=== PATIENT | male | born 1985 | race Caucasian/White ===

== ENCOUNTER 2023-04-29 04:40 | Emergency (ER) | payer OTHER ==
[2023-04-29 05:29] VITALS: RESP 16; TEMP 97
[2023-04-29] MEDS ORDERED: levETIRAcetam IV 500 MG/5 ML VIAL IVP STA (05:29)
--- NOTE | 2023-04-29 05:32 | ED ---
General Adult HPI - General Chief complaint: Seizure Stated complaint: Seizure Time Seen by Provider: 04/29/23 04:57 Source: patient Mode of arrival: EMS Limitations: no limitations - History of Present Illness Initial comments: Dictation was produced using 4meee dictation software. please excuse any grammatical, word or spelling errors. Chief Complaint: 37-year-old male with history of seizure disorder presents to emergency department after having had a seizure History of Present Illness: 37-year-old male with past medical history of seizure disorder presents to emergency department after seizure. Patient has history of alcoholism. Patient currently a resident at [facility]. He's had alcohol withdrawal seizures in the past. Hasn't had a alcoholic drink in approximately 3-4 days. Patient takes Keppra. He reports full complaints with his medications. Patient's alcohol withdrawals have been treated at [facility]. Patient's last seizure was in January. States that around that time he has been abusing alcohol. Denies any neurologic deficits. The ROS documented in this emergency department record has been reviewed and confirmed by me. Those systems with pertinent positive or negative responses have been documented in the HPI. All other systems are other negative and/or noncontributory. Review of Systems ROS Statement: Those systems with pertinent positive or pertinent negative responses have been documented in the HPI. ROS Other: All systems not noted in ROS Statement are negative. Past Medical History Past Medical History: Seizure Disorder History of Any Multi-Drug Resistant Organisms: None Reported Past Surgical History: No Surgical Hx Reported Past Psychological History: No Psychological Hx Reported Smoking Status: Smoker, current status unknown Past Alcohol Use History: Abuse Past Drug Use History: None Reported General Exam - General Exam Comments Initial Comments: PHYSICAL EXAM: General Impression: Alert and oriented x3, not in acute distress HEENT: Normocephalic atraumatic, extra-ocular movements intact, pupils equal and reactive to light bilaterally, mucous membranes moist. Cardiovascular: Heart regular rate and rhythm Chest: Able to complete full sentences, no retractions, no tachypnea Abdomen: abdomen soft, non-tender, non-distended, no organomegaly Musculoskeletal: Pulses present and equal in all extremities, no peripheral edema Motor: no focal deficits noted Neurological: CN II-XII grossly intact, no focal motor or sensory deficits noted Skin: Intact with no visualized rashes Psych: Normal affect and mood Limitations: no limitations Course Vital Signs 04/29/23 04/29/23 04:50 06:05 Temperature 97.0 F L Pulse Rate 65 68 Respiratory 16 16 Rate Blood Pressure 128/100 146/114 O2 Sat by Pulse 97 95 Oximetry Medical Decision Making - Medical Decision Making Was pt. sent in by a medical professional or institution (, SONALI, FUEL DOCK ATTENDANT, urgent care, hospital, or senior living...) When possible be specific @ -[facility] Did you speak to anyone other than the patient for history (EMS, parent, family, police, friend...)? What history was obtained from this source @ -No Did you review nursing and triage notes (agree or disagree)? Why? @ -I reviewed and agree with nursing and triage notes Were old charts reviewed (outside hosp., previous admission, EMS record, old EKG, old radiological studies, urgent care reports/EKG's, senior living records)? Report findings @ -No old charts were reviewed Differential Diagnosis (chest pain, altered mental status, abdominal pain women, abdominal pain men, vaginal bleeding, musculoskeletal, weakness, fever, dyspnea, syncope, headache, dizziness, GI bleed, back pain, seizure, CVA, palpatations, mental health)? @ -Differential Seizure: Recurrent seizure disorder, febrile seizure, alcohol withdrawal, stimulants, m eningitis, encephalitis, intercranial hemorrhage, intracranial tumor, stroke, eclampsia, thyrotoxicosis, hypocalcemia, hyponatremia, hypernatremia, hypomagnesemia, psychogenic, this is not meant to be an all-inclusive list. EKG interpreted by me (3pts min.). @ -My EKG interpretation: Ventricular rate 54, sinus bradycardia, OR interval 145, QRS 86, QTC 437. No OR prolongation, no QTC prolongation. Isolated T-wave inversion in lead 3. No old EKG for comparison. Overall this EKG is nonspecific X-rays interpreted by me (1pt min.). @ -None done CT interpreted by me (1pt min.). @ -None done U/S interpreted by me (1pt. min.). @ -None done What testing was considered but not performed or refused? (CT, X-rays, U/S, labs)? Why? @ -None What meds were considered but not given or refused? Why? @ -None Did you discuss the management of the patient with other professionals (professionals i.e. , PA, FUEL DOCK ATTENDANT, lab, RT, psych nurse, social service director, demand planner, teacher, chief green officer, senior case manager)? Give summary @ -No Was smoking cessation discussed for >3mins.? @ -No Was critical care preformed (if so, how long)? @ -No Were there social determinants of health that impacted care today? How? (Homelessness, low income, unemployed, alcoholism, drug addiction, transportation, low edu. Level, literacy, decrease access to med. care, fdc, rehab)? @ -No Was there de-escalation of care discussed even if they declined (Discuss DNR or withdrawal of care, Hospice)? DNR status @ -No What co-morbidities impacted this encounter? (DM, HTN, Smoking, COPD, CAD, Cancer, CVA, ARF, Chemo, Hep., AIDS, mental health diagnosis, sleep apnea, morbid obesity)? @ -None Was patient admitted / discharged? Hospital course, mention meds given and route, prescriptions, significant lab abnormalities, going to OR and other pertinent info. @ -37 Year-old male with past medical history of seizure disorder presents to the ER after seizure. Patient currently at detox facility for alcohol detox. Does report having had a seizure disorder and also alcohol withdrawal seizures.Patient is not showing any signs of alcohol withdrawal. He is well- appearing with stable vitals not agitated or tremulous. Suspect that patient's seizure was secondary to breakthrough seizure. I return evaluation unremarkable. CBC metabolic panel unremarkable. Patient observed in emergency Department with no recurrence of seizures. Patient 1 g of Keppra. Patient discharged back to detox facility Undiagnosed new problem with uncertain prognosis? @ -No Drug Therapy requiring intensive monitoring for toxicity (Heparin, Nitro, Insulin, Cardizem)? @ -No Were any procedures done? @ -No Diagnosis/symptom? Acute, or Chronic, or Acute on Chronic? Uncomplicated (without systemic symptoms) or Complicated (systemic symptoms)? @ -Seizure Side effects of treatment? @ -No Exacerbation, Progression, or Severe Exacerbation? @ -No Poses a threat to life or bodily function? How? (Chest pain, USA, NM, pneumonia, PE, COPD, DKA, ARF, appy, cholecystitis, CVA, Diverticulitis, Homicidal, Suicidal, threat to staff... and all critical care pts) @ -yes - Lab Data Result diagrams: 04/29/23 05:11 04/29/23 05:11 Lab Results 04/29/23 04/29/23 Range/Units 05:11 05:11 WBC 5.9 (3.8-10.6) k/uL RBC 4.39 (4.30-5.90) m/uL Hgb 15.4 (13.0-17.5) gm/dL Hct 44.5 (39.0-53.0) % MCV 101.3 H (80.0-100.0) fL MCH 35.0 (25.0-35.0) pg MCHC 34.5 (31.0-37.0) g/dL RDW 12.4 (11.5-15.5) % Plt Count 84 L (150-450) k/uL MPV 10.0 Neutrophils % 77 % Lymphocytes % 14 % Monocytes % 6 % Eosinophils % 2 % Basophils % 0 % Neutrophils # 4.5 (1.3-7.7) k/uL Lymphocytes # 0.8 L (1.0-4.8) k/uL Monocytes # 0.4 (0-1.0) k/uL Eosinophils # 0.1 (0-0.7) k/uL Basophils # 0.0 (0-0.2) k/uL Sodium 134 L (137-145) mmol/L Potassium 4.0 (3.5-5.1) mmol/L Chloride 94 L (98-107) mmol/L Carbon Dioxide 30 (22-30) mmol/L Anion Gap 10 mmol/L BUN 12 (9-20) mg/dL Creatinine 0.77 (0.66-1.25) mg/dL Est GFR (CKD-EPI)AfAm >90 (>60 ml/min/1.73 sqM) Est GFR (CKD-EPI)NonAf >90 (>60 ml/min/1.73 sqM) Glucose 96 (74-99) mg/dL Calcium 9.8 (8.4-10.2) mg/dL Serum Alcohol <10 mg/dL Disposition Clinical Impression: Seizure Disposition: HOME SELF-CARE Condition: Good Instructions (If sedation given, give patient instructions): Recurrent Seizures in Adults (ED) Is patient prescribed a controlled substance at d/c from ED?: No Referrals: Nohemy Ramos MD [Primary Care Provider] - 1-2 days Time of Disposition: 06:42
[2023-04-29 05:52] LABS: Basophils % (A) 0 %; Eosinophils # (A) 0.1 k/uL (0-0.7); Eosinophils % (A) 2 %; HCT 44.5 % (39.0-53.0); HGB 15.4 gm/dL (13.0-17.5); Lymphocytes # (A) 0.8 k/uL (1.0-4.8); Lymphocytes % (A) 14 %; MCHC 34.5 g/dL (31.0-37.0); MCV 101.3 fL (80.0-100.0); Monocytes # (A) 0.4 k/uL (0-1.0); Monocytes % (A) 6 %; Neutrophils # (A) 4.5 k/uL (1.3-7.7); Neutrophils % (A) 77 %; Platelet Count 84 k/uL (150-450); RBC 4.39 m/uL (4.30-5.90); RDW 12.4 % (11.5-15.5); WBC 5.9 k/uL (3.8-10.6)
[2023-04-29 06:00] LABS: African American GFR (CKD) >90 (>60 ml/min/1.73 sqM); Alcohol <10 mg/dL; Anion Gap 10 mmol/L; Blood Urea Nitrogen 12 mg/dL (9-20); Calcium 9.8 mg/dL (8.4-10.2); Carbon Dioxide 30 mmol/L (22-30); Chloride 94 mmol/L (98-107); Glucose 96 mg/dL (74-99); Non-African American GFR(CKD) >90 (>60 ml/min/1.73 sqM); Sodium 134 mmol/L (137-145)
[2023-04-29 07:25] VITALS: BP 134/98; PULSE 58
== END 2023-04-29 07:17 | disposition home or self-care (01) ==
LOC: EC 04:40
DX: R56.9 Unspecified convulsions (principal); F17.200 Nicotine dependence, unspecified, uncomplicated
CPT/HCPCS: 36415; 93005; 80048; 85025; 99284; 96374; G0480; J1953; 80320

== ENCOUNTER 2023-04-30 13:04 | Inpatient (IN) | payer OTHER ==
[2023-04-30] MEDS ORDERED: KETOROLAC 15 MG/ML 1 ML VIAL IVP STA (13:32)
[2023-04-30] MEDS ORDERED: levETIRAcetam IV 500 MG/5 ML VIAL IVP ONE (13:32)
[2023-04-30] MEDS ORDERED: LORazepam 2 MG/ML INJ IV STA ×4 (13:32→17:55)
[2023-04-30] MEDS ORDERED: SODIUM CHLORIDE 0.9% 1,000 ML IV ONE (13:32)
[2023-04-30 14:01] LABS: Basophils % (A) 1 %; Eosinophils # (A) 0.2 k/uL (0-0.7); Eosinophils % (A) 4 %; HCT 40.1 % (39.0-53.0); Lymphocytes # (A) 0.7 k/uL (1.0-4.8); Lymphocytes % (A) 12 %; MCH 36.1 pg (25.0-35.0); MCHC 34.9 g/dL (31.0-37.0); MCV 103.5 fL (80.0-100.0); Macrocytosis Slight; Mean Platelet Volume 10.6; Monocytes # (A) 0.3 k/uL (0-1.0); Monocytes % (A) 6 %; Neutrophils # (A) 4.7 k/uL (1.3-7.7); Neutrophils % (A) 77 %; Platelet Count 102 k/uL (150-450); RBC 3.88 m/uL (4.30-5.90); RDW 12.2 % (11.5-15.5)
[2023-04-30 14:13] LABS: Cocaine Screen,Urine Not Detected (NotDetected); Phencyclidine Screen,Urine Not Detected (NotDetected); Urn Cannabinoid Scrn Detected (NotDetected)
[2023-04-30 14:14] LABS: Amphetamine Screen,Urine Not Detected (NotDetected); Barbiturate Screen,Urine Not Detected (NotDetected); Benzodiazepines Screen,Urine Detected (NotDetected); Methadone Screen, Urine Not Detected (NotDetected); Opiate Screen,Urine Not Detected (NotDetected); Oxycodone Screen, Urine Not Detected (NotDetected); Tricyclic Antidepressant,Urine Not Detected (NotDetected)
[2023-04-30 14:20] LABS: ALT 186 U/L (4-49); AST 467 U/L (17-59); Acetaminophen <10.0 ug/mL; African American GFR (CKD) >90 (>60 ml/min/1.73 sqM); Albumin 4.4 g/dL (3.5-5.0); Alcohol <10 mg/dL; Alkaline Phosphatase 59 U/L (38-126); Anion Gap 11 mmol/L; Blood Urea Nitrogen 17 mg/dL (9-20); Calcium 9.2 mg/dL (8.4-10.2); Carbon Dioxide 22 mmol/L (22-30); Chloride 100 mmol/L (98-107); Glucose 85 mg/dL (74-99); Non-African American GFR(CKD) >90 (>60 ml/min/1.73 sqM); Salicylate <1.0 mg/dL; Sodium 133 mmol/L (137-145); Total Bilirubin 1.7 mg/dL (0.2-1.3); Total Protein 7.4 g/dL (6.3-8.2)
[2023-04-30 14:26] LABS: Potassium 4.5 mmol/L (3.5-5.1)
--- NOTE | 2023-04-30 15:01 | ED ---
Altered Mental Status HPI <Alexei Anaya - Last Filed: 04/30/23 22:15> - General Source: police, EMS, RN notes reviewed Mode of arrival: EMS Limitations: altered mental status - History of Present Illness MD Complaint: altered mental status <Migdalia De La Cruz - Last Filed: 05/01/23 07:59> - General Chief Complaint: Altered Mental Status Stated Complaint: AMS,Detox Time Seen by Provider: 04/30/23 13:20 - History of Present Illness Initial Comments: This is a 37-year-old male who presents to the emergency department via EMS with police for altered mental status. Patient was initially at [facility] and asked to leave, as he was supposedly causing a disturbance. When he left, he was found to be in the parking lot trying to get into various vehicles. When police arrived, he was altered. He was unsure where he was and listed several cities that were not [place]. He also stated that he had surgery on his right foot today, however police did not see any evidence of an incision. Patient states that they made a small incision in his leg that went down to fix his broken foot. States that this is still very painful. Patient was evaluated here yesterday for a breakthrough seizure. He came from [place], where he had been for alcohol detox. Patient was not exhibiting any evidence of alcohol withdrawals it was believed that this was simply a breakthrough seizure. He was given a dose of Keppra and discharged back to [place]. However, the patient subsequently left [place] on his own accord today and will not be accepted back per police. Police did petition the patient. (Migdalia De La Cruz) - Related Data Home Medications Medication Instructions Recorded Confirmed levETIRAcetam [Keppra] 750 mg PO BID 04/30/23 04/30/23 Allergies Allergy/AdvReac Type Severity Reaction Status Date / Time No Known Allergies Allergy Verified 04/30/23 14:47 Review of Systems ROS Other: All systems not noted in ROS Statement are negative. <Alexei Anaya - Last Filed: 04/30/23 22:15> ROS Other: All systems not noted in ROS Statement are negative. <Migdalia De La Cruz - Last Filed: 05/01/23 07:59> ROS Statement: Those systems with pertinent positive or pertinent negative responses have been documented in the HPI. Past Medical History - Past Family History Father Family Medical History: Unable to Obtain (due to mental status) <Alexei Anaya - Last Filed: 04/30/23 22:15> Past Medical History: Seizure Disorder History of Any Multi-Drug Resistant Organisms: None Reported Past Surgical History: No Surgical Hx Reported Past Psychological History: No Psychological Hx Reported Smoking Status: Smoker, current status unknown Past Alcohol Use History: Abuse Past Drug Use History: None Reported <Migdalia De La Cruz - Last Filed: 05/01/23 07:59> General Exam Limitations: altered mental status General appearance: alert Head exam: Present: atraumatic, normocephalic, normal inspection Respiratory exam: Present: normal lung sounds bilaterally. Absent: respiratory distress, wheezes, rales, rhonchi, stridor Cardiovascular Exam: Present: regular rate, normal rhythm, normal heart sounds. Absent: systolic murmur, diastolic murmur, rubs, gallop, clicks Psychiatric exam: Present: agitated Expanded Focused psych exam: Present: delusional, restlessness, flight of ideas <Migdalia De La Cruz - Last Filed: 05/01/23 07:59> Course Vital Signs 04/30/23 04/30/23 04/30/23 13:13 16:49 18:12 Temperature 98.1 F Pulse Rate 83 87 97 Respiratory 18 20 22 Rate Blood Pressure 153/107 167/122 157/115 O2 Sat by Pulse 99 98 97 Oximetry Procedures - Restraint - Face to Face Restraint Occurrence 1 Patient's Immediate Situation: Endangers self safety Patient's Reaction to the Intervention: Belligerent, Bizarre, Suspicious, Resistive to care Patient's Medical & Behavioral Condition: Agitated, Paranoid Need to Continue or Terminate Restraint or Seclusion: Continue Face to Face Eval of Restraint Date: 04/30/23 Face to Face Eval of Restraint Time: 17:36 Restraint Occurrence 2 Patient's Immediate Situation: Endangers self safety, Endangers others' safety Patient's Reaction to the Intervention: Bizarre, Suspicious, Resistive to care Patient's Medical & Behavioral Condition: Confused, Agitated, Bizarre behavior Need to Continue or Terminate Restraint or Seclusion: Continue Face to Face Eval of Restraint Date: 04/30/23 Face to Face Eval of Restraint Time: 21:36 <ElenaAlexei dietrich - Last Filed: 04/30/23 22:15> Medical Decision Making - Lab Data Result diagrams: 04/30/23 13:48 04/30/23 13:48 <ElenakaurAlexei - Last Filed: 04/30/23 22:15> - Lab Data Result diagrams: 05/01/23 05:18 05/01/23 05:18 - Radiology Data Radiology results: report reviewed, image reviewed <Migdalia De La Cruz - Last Filed: 05/01/23 07:59> - Medical Decision Making This is a 37-year-old male who presents to the emergency department for altered mental status. Was pt. sent in by a medical professional or institution? @ -No Did you speak to anyone other than the patient for history? @ -[facility] Did you review nursing and triage notes? @ -Yes, and I agree, it is accurate with regards to the patient's symptoms. Were old charts reviewed? @ -No Differential Diagnosis? @ -Differential Altered Mental Status: Hypoglycemia, DKA, hypercapnia, ETOH, overdose, CO poisoning, trauma, myxedema coma, HTN encephalopathy, infection, encephalitis, psychosis, intercranial hem orrhage, hepatic encephalopathy, meningitis, CVA, this is not meant to be an all-inclusive list EKG interpreted by me (3pts min.)? @ -Not obtained. X-rays interpreted by me (1pt min.)? @ -X-ray of the right foot and ankle obtained. My interpretation identifies soft tissue swelling. CT interpreted by me (1pt min.)? @ -Computed tomography scan of the brain obtained. My interpretation identifies no evidence of ischemic changes. U/S interpreted by me (1pt. min.)? @ -Not obtained What testing was considered but not performed? (CT, X-rays, U/S, labs)? Why? @ -None What meds were considered but not given? Why? @ -None Did you discuss the management of the patient with other professionals? @ -No Did you reconcile home meds? @ -No Was smoking cessation discussed for >3mins.? @ -No Was critical care preformed (if so, how long)? @ -No Were there social determinants of health that impacted care today? How? (Homelessness, low income, unemployed, alcoholism, drug addiction, transportation, low edu. Level, literacy, decrease access to med. care, care home, rehab)? @ -No Was there de-escalation of care discussed even if they declined? (Discuss DNR or withdrawal of care, Hospice)? @ -No What co-morbidities impacted this encounter? (DM, HTN, Smoking, COPD, CAD, Cancer, CVA, Hep., AIDS, mental health diagnosis, sleep apnea, morbid obesity)? @ -Seizure disorder, alcohol abuse Was patient admitted / discharged? @ -Lab work obtained revealing elevated liver enzymes consistent with the patient's history of alcohol abuse. Urine drug screen positive for marijuana and benzodiazepines. Alcohol level negative. Computed tomography scan of the brain obtained revealing a left globe abnormality concerning for vitreous hemorrhage. Patient was very agitated and delusional on examination. He would not answer questions regarding his eye, nor would he let me examine it. He did not have any obvious injuries on exam. He was given 750 mg of Keppra, as he did not take his dose today. 2 mg, followed by 1 mg of Ativan were given initially, however the patient became progressively more agitated and psychotic. He was subsequently given 4 mg of Ativan, followed by 50 mg of Benadryl and 2 mg of Haldol. 2mg of Ativan administered again. Patient continued to have no improvement and had to be put in restraints. 5 mg of Haldol and 2 mg of Ativan were then administered. Case signed out to ED attending, Dr. Anaya, at shift completion. EPS eval pending. Undiagnosed new problem with uncertain prognosis? @ -None Drug Therapy requiring intensive monitoring for toxicity (Heparin, Nitro, Insulin, Cardizem)? @ -None Were any procedures done? @ -None (Migdalia De La Cruz) - Lab Data Lab Results 04/30/23 04/30/23 04/30/23 Range/Units 13:48 13:48 13:48 WBC 6.0 (3.8-10.6) k/uL RBC 3.88 L (4.30-5.90) m/uL Hgb 14.0 (13.0-17.5) gm/dL Hct 40.1 (39.0-53.0) % MCV 103.5 H (80.0-100.0) fL MCH 36.1 H (25.0-35.0) pg MCHC 34.9 (31.0-37.0) g/dL RDW 12.2 (11.5-15.5) % Plt Count 102 L (150-450) k/uL MPV 10.6 Neutrophils % 77 % Lymphocytes % 12 % Monocytes % 6 % Eosinophils % 4 % Basophils % 1 % Neutrophils # 4.7 (1.3-7.7) k/uL Lymphocytes # 0.7 L (1.0-4.8) k/uL Monocytes # 0.3 (0-1.0) k/uL Eosinophils # 0.2 (0-0.7) k/uL Basophils # 0.0 (0-0.2) k/uL Macrocytosis Slight Sodium 133 L (137-145) mmol/L Potassium 4.5 (3.5-5.1) mmol/L Chloride 100 (98-107) mmol/L Carbon Dioxide 22 (22-30) mmol/L Anion Gap 11 mmol/L BUN 17 (9-20) mg/dL Creatinine 0.85 (0.66-1.25) mg/dL Est GFR (CKD-EPI)AfAm >90 (>60 ml/min/1.73 sqM) Est GFR (CKD-EPI)NonAf >90 (>60 ml/min/1.73 sqM) Glucose 85 (74-99) mg/dL Plasma Lactic Acid Sina (0.7-2.0) mmol/L Calcium 9.2 (8.4-10.2) mg/dL Total Bilirubin 1.7 H (0.2-1.3) mg/dL AST 467 H (17-59) U/L ALT 186 H (4-49) U/L Alkaline Phosphatase 59 (38-126) U/L Total Protein 7.4 (6.3-8.2) g/dL Albumin 4.4 (3.5-5.0) g/dL Salicylates <1.0 mg/dL Urine Opiates Screen Not Detected (NotDetected) Ur Oxycodone Screen Not Detected (NotDetected) Urine Methadone Screen Not Detected (NotDetected) Ur Propoxyphene Screen Not Detected (NotDetected) Acetaminophen <10.0 ug/mL Ur Barbiturates Screen Not Detected (NotDetected) U Tricyclic Antidepress Not Detected (NotDetected) Ur Phencyclidine Scrn Not Detected (NotDetected) Ur Amphetamines Screen Not Detected (NotDetected) U Methamphetamines Scrn Not Detected (NotDetected) U Benzodiazepines Scrn Detected H (NotDetected) Urine Cocaine Screen Not Detected (NotDetected) U Marijuana (THC) Screen Detected H (NotDetected) Serum Alcohol <10 mg/dL 04/30/23 Range/Units 13:48 WBC (3.8-10.6) k/uL RBC (4.30-5.90) m/uL Hgb (13.0-17.5) gm/dL Hct (39.0-53.0) % MCV (80.0-100.0) fL MCH (25.0-35.0) pg MCHC (31.0-37.0) g/dL RDW (11.5-15.5) % Plt Count (150-450) k/uL MPV Neutrophils % % Lymphocytes % % Monocytes % % Eosinophils % % Basophils % % Neutrophils # (1.3-7.7) k/uL Lymphocytes # (1.0-4.8) k/uL Monocytes # (0-1.0) k/uL Eosinophils # (0-0.7) k/uL Basophils # (0-0.2) k/uL Macrocytosis Sodium (137-145) mmol/L Potassium (3.5-5.1) mmol/L Chloride (98-107) mmol/L Carbon Dioxide (22-30) mmol/L Anion Gap mmol/L BUN (9-20) mg/dL Creatinine (0.66-1.25) mg/dL Est GFR (CKD-EPI)AfAm (>60 ml/min/1.73 sqM) Est GFR (CKD-EPI)NonAf (>60 ml/min/1.73 sqM) Glucose (74-99) mg/dL Plasma Lactic Acid Sina 1.0 (0.7-2.0) mmol/L Calcium (8.4-10.2) mg/dL Total Bilirubin (0.2-1.3) mg/dL AST (17-59) U/L ALT (4-49) U/L Alkaline Phosphatase (38-126) U/L Total Protein (6.3-8.2) g/dL Albumin (3.5-5.0) g/dL Salicylates mg/dL Urine Opiates Screen (NotDetected) Ur Oxycodone Screen (NotDetected) Urine Methadone Screen (NotDetected) Ur Propoxyphene Screen (NotDetected) Acetaminophen ug/mL Ur Barbiturates Screen (NotDetected) U Tricyclic Antidepress (NotDetected) Ur Phencyclidine Scrn (NotDetected) Ur Amphetamines Screen (NotDetected) U Methamphetamines Scrn (NotDetected) U Benzodiazepines Scrn (NotDetected) Urine Cocaine Screen (NotDetected) U Marijuana (THC) Screen (NotDetected) Serum Alcohol mg/dL Disposition <Alexei Anaya - Last Filed: 04/30/23 22:15> <Migdalia De La Cruz - Last Filed: 05/01/23 07:59> Clinical Impression: Alcohol withdrawal delirium Disposition: ADMITTED IP TO THIS HOSP
--- NOTE | 2023-04-30 15:22 | XR ---
EXAMINATION TYPE: XR ankle complete 3 views RT, XR foot complete 3 views RT DATE OF EXAM: 04/30/2023 COMPARISON: NONE HISTORY: 37-year-old male pain, swelling, contusion FINDINGS: Ankle: Prominent anterior soft tissue swelling. Slight prominence to the lateral clear space and distal tibi ofibular overlap. Talar dome appears intact. Small corticated ossicles below both medial and lateral malleoli measuring up to 5 mm medially and up to 1 cm laterally suggesting sequela of prior injuries. Underlying moderate joint effusion. Subtalar joint align. Foot: No acute fracture, subluxation, dislocation seen. IMPRESSION: 1. Ankle: Prominent anterior and lateral sided soft tissue swelling along with underlying tibiotalar joint effusion. Given a prominent lateral clear space, consider a high ankle sprain and orthopedic fo llow-up. Chronic ununited fracture fragments below both medial and lateral malleoli related to episod es of prior injuries. 2. Foot: No acute osseous abnormality seen.
[2023-04-30] MEDS ORDERED: LORazepam 2 MG/ML INJ IV PRN ×2 (15:24)
[2023-04-30] MEDS ORDERED: THIAMINE 100 MG/ML 2 ML VIAL IM STA (15:24)
--- NOTE | 2023-04-30 16:14 | CT ---
EXAMINATION TYPE: CT brain cspine wo con CT DLP: 1382.2 mGycm, Automated exposure control for dose reduction was used. DATE OF EXAM: 04/30/2023 4:03 PM COMPARISON: None. CLINICAL INDICATION:Male, 37 years old with history of Altered mental status; ams, substance abuse TECHNIQUE: Brain: Multiple axial CT images of the brain were obtained without IV contrast. Cspine: Axial CT images from the skull base to the inferior aspect of T2 we obtained without intraven ous contrast. Coronal and sagittal reformatted images were also reviewed. FINDINGS: Brain: Extra-axial spaces: No abnormal extra-axial fluid collections. Ventricular system: Within normal limits Cerebral parenchyma: No acute intraparenchymal hemorrhage or mass effect. The mcnamara-white junction is well differentiated. Cerebellum: Unremarkable. Mass effect: No evidence of midline shift. Intracranial vasculature: unremarkable Soft tissues: Normal. Calvarium/osseous structures: No depressed skull fracture. Paranasal sinuses and mastoid air cells: Mild scattered mucosal thickening and or secretions. Visualized orbits: Abnormality to the left globe suspicious with increased fluid fluid level posterio rly. The left lens is not visualized. Cervical spine: Fracture: None. Osseous structures: Unremarkable Vertebral alignment: Within normal limits. Spinal canal/Neural Foramina: No evidence of significant spinal canal narrowing. No evidence for sign ificant neural foraminal stenosis. Neck soft tissues: Prevertebral soft tissues are within normal limits. Other: The airway is patent. The lung apices are clear. IMPRESSION: 1. No acute intracranial process. 2. Left globe abnormality suspicious for vitreous hemorrhage versus other etiologies. Correlate with history. 3. No evidence of cervical spine fracture.
[2023-04-30] MEDS ORDERED: diphenhydrAMINE 50 MG/ML 1 ML VIAL IVP STA (16:54)
[2023-04-30] MEDS ORDERED: HALOPERIDOL LACTATE 5 MG/ML 1 ML VIAL IVP ONE ×2 (16:54→23:41)
[2023-04-30] MEDS ORDERED: HALOPERIDOL LACTATE 5 MG/ML 1 ML VIAL IM STA (17:42)
[2023-04-30] MEDS ORDERED: NALOXONE 0.4 MG/ML 1 ML VIAL IV PRN (20:10)
--- NOTE | 2023-04-30 20:33 | P.HPIM ---
History of Present Illness H&P Date: 04/30/23 The patient is a 37-year-old male with a PMH of EtOH abuse with history of DTs requiring ICU hospitalization and Ativan infusion, history of alcohol withdrawal seizures, and reported history of [id number] seizure disorder who was brought into the emergency room sent from [place] for DTs. The patient was actively withdrawing at the time of interview and thereby history was limited. History was upgraded from the ED provider as well as [facility] staff. The patient has reportedly been admitted to [facility] since 0 on 04/26 for alcohol rehabilitation and detox. The patient routinely drinks a fifth of hard liquor daily and has been doing so for the past several years. His last drink was just prior to admission at [facility]. The patient was noted to be developing DTs on the morning of 04/29 and had a seizure, after which he was sent to the emergency room. The patient was evaluated and was cleared for discharge and subsequently returned to [place]. As per the staff at [facility], the patient's agitation and withdrawal gradually worsened and he began having hallucinations and was subsequently sent back to the emergency room earlier today. There were no reports of trauma. In the emergency room, the patient was given Ativan IV push 11 mg, Benadryl 50 mg IV push, Haldol 5 mg IM and [address] head and cervical spine revealed no acute intracranial abnormalities aside from a global abnormality suspicious for vitreous hemorrhage versus other etiologies. A right ankle x-ray revealed lateral and anterior soft tissue swelling along the tibiotalar joint with a joint effusion, consistent with a high ankle sprain. Laboratory evaluation revealed an MCV of 103.5, platelet count 102, sodium 133, total bilirubin 0.7, lactic acid 1.0, AST 467, ALT 186, with urine toxicology positive for marijuana. ED documentation reviewed and case discussed with ED provider. [] Review of systems: Unable to obtain due to mental status. Physical examination: Vital signs reviewed General: Agitated male, appears at stated age, normal weight Derm: no unusual rashes/lesions, warm Head: atraumatic, normocephalic, symmetric Eyes: EOMI, no lid lag, anicteric sclera, pupils equal round reactive to light ENT: Nose and ears atraumatic Neck: No cervical lymphadenopathy, trachea midline, supple Mouth: no lip lesion, mucus membranes moist Cardiovascular: S1S2 reg, tachycardic, no murmur, positive dorsalis pedis pulse bilateral, no edema Lungs: CTA bilateral, no rhonchi, no rales, no accessory muscle use Abdominal: soft, nontender to palpation, no guarding Ext: no gross muscle atrophy, no contractures Neuro: no gross focal neuro deficits, patient in 4 point restraints, severely agitated Psych: Answering questions but only oriented to self Assessment: Alcohol withdrawal with delirium tremens Suspected vitreous hemorrhage Right high ankle sprain Macrocytosis Thrombocytopenia Abnormal LFTs Hyponatremia Imaging: CT head and cervical spine revealed no acute intracranial abnormalities aside from a global abnormality suspicious for vitreous hemorrhage versus other etiologies. A right ankle x-ray revealed lateral and anterior soft tissue swelling along the tibiotalar joint with a joint effusion, consistent with a high ankle sprain. Data Review: Laboratory evaluation revealed an MCV of 103.5, platelet count 102, sodium 133, total bilirubin 0.7, lactic acid 1.0, AST 467, ALT 186, with urine toxicology positive for marijuana. Plan: In light of patient requiring significant sedation with high CIWA score, patient will likely require ICU level of care with Ativan and Precedex infusions C/w IVFs NS 125 mL/hr Monitor electrolytes daily Fall precautions CIWA protocol with Ativan IVP C/w Thiamine The ED physician reports he discussed the case with ophthalmology telephone answerer who noted that vitreous hemorrhage is usually an outpatient follow-up but that they are happy to be on consult to evaluate the patient in a.m. [employer] consulted Orthopedic surgery consult for R ankle sprain DVT prophylaxis: IPCDs The patient is admitted with an anticipated greater than 2 midnight stay for evaluation of CODE STATUS: Full Code Discussed with: Patient Anticipated discharge place: [place] Past Medical History Past Medical History: Seizure Disorder History of Any Multi-Drug Resistant Organisms: None Reported Past Surgical History: No Surgical Hx Reported Past Psychological History: No Psychological Hx Reported Smoking Status: Smoker, current status unknown Past Alcohol Use History: Abuse Past Drug Use History: None Reported - Past Family History Father Family Medical History: Unable to Obtain (due to mental status) Medications and Allergies Home Medications Medication Instructions Recorded Confirmed Type levETIRAcetam [Keppra] 750 mg PO BID 04/30/23 04/30/23 History Allergies Allergy/AdvReac Type Severity Reaction Status Date / Time No Known Allergies Allergy Verified 04/30/23 14:47 Physical Exam Vitals: Vital Signs Temp Pulse Resp BP Pulse Ox 04/30/23 18:12 97 22 157/115 97 04/30/23 16:49 87 20 167/122 98 04/30/23 13:13 98.1 F 83 18 153/107 99 Intake and Output 04/30/23 04/30/23 04/30/23 06:59 14:59 22:59 Other: Weight 74.843 kg Results CBC & Chem 7: 04/30/23 13:48 04/30/23 13:48 Labs: Abnormal Lab Results - Last 24 Hours (Table) 04/30/23 04/30/23 04/30/23 Range/Units 13:48 13:48 13:48 RBC 3.88 L (4.30-5.90) m/uL MCV 103.5 H (80.0-100.0) fL MCH 36.1 H (25.0-35.0) pg Plt Count 102 L (150-450) k/uL Lymphocytes # 0.7 L (1.0-4.8) k/uL Sodium 133 L (137-145) mmol/L Total Bilirubin 1.7 H (0.2-1.3) mg/dL AST 467 H (17-59) U/L ALT 186 H (4-49) U/L U Benzodiazepines Scrn Detected H (NotDetected) U Marijuana (THC) Screen Detected H (NotDetected)
[2023-04-30 22:36] LABS: Glucose,Whole Blood 71 mg/dL (70-110)
[2023-04-30] MEDS ORDERED: HALOPERIDOL LACTATE 5 MG/ML 1 ML VIAL ONE (23:57)
[2023-05-01] MEDS: DEXMEDETOMIDINE/0.9% NACL(PMX) 400 MCG in EMPTY BAG 1 BAG IV SCH ×2 (01:00→06:32)
--- NOTE | 2023-05-01 05:57 | P.CNPUL ---
History of Present Illness Consult date: 05/01/23 Requesting physician: Alexei Anaya Reason for consult: other (ICU management) Chief complaint: Altered mental status History of present illness: I am seeing this patient in new consultation today 05/01/2023 in the intensive care unit for acute alcohol withdrawal. Patient is a 37-year-old white male with past medical history significant for alcoholism, alcohol withdrawal seizures, and prior admissions for DTs. Patient reportedly drinks 1/5 of alcohol per day. He is currently confused and delirious, and most of this HPI was obtained from chart review. The patient was apparently admitted at [place] [facility] facility to detox from alcohol. The patient did have a seizure while at the facility, and had an ER visit on April 29. The patient was then discharged back to [place]. Yesterday, afternoon the patient was brought in by the police, after being found in a parking lot causing some sort of disturbance. The patient was found to be agitated and having hallucinations/delusions. It is unknown when his last drink was. Serum EtOH level was less than 10 on arrival. He was started on the CIWA protocol, and admitted to the intensive care unit. The patient was also reporting some right foot pain. X-ray of the right ankle showed prominent anterior and lateral sided soft tissue swelling along with underlying tibiotalar joint effusion. This was consistent with high ankle sprain. There are also chronic ununited fracture fragments below both medial and lateral malleoli related to episodes of prior injury. No acute fracture seen. CT of the brain and C-spine without contrast showed no acute intracranial process or C-spine fracture. It did show a left globe abnormality suspicious for vitreous hemorrhage. The patient is currently sitting up in bed, on room air, quite agitated, exhibiting many delusions and hallucinations. He has been given multiple doses of Ativan and Haldol. He was then started on Precedex infusion which is currently infusing at 0.4 mics per kilogram per minute. Urine toxicology screen was positive for marijuana and benzodiazepines on arrival. CBC on arrival was unremarkable. BMP and electrolytes were unremarkable. Patient does have slightly elevated at LFTs consistent with chronic alcohol abuse. He is receiving vitamin B1 supple mentation. Normal saline is infusing at 100 mL per hour. Patient will be monitored in the intensive care unit. Review of Systems ROS unobtainable: due to mental status Past Medical History Past Medical History: Seizure Disorder History of Any Multi-Drug Resistant Organisms: None Reported Past Surgical History: No Surgical Hx Reported Past Psychological History: No Psychological Hx Reported Smoking Status: Smoker, current status unknown Past Alcohol Use History: Abuse Past Drug Use History: None Reported - Past Family History Father Family Medical History: Unable to Obtain (due to mental status) Medications and Allergies Home Medications Medication Instructions Recorded Confirmed Type levETIRAcetam [Keppra] 750 mg PO BID 04/30/23 04/30/23 History Allergies Allergy/AdvReac Type Severity Reaction Status Date / Time No Known Allergies Allergy Verified 04/30/23 14:47 Physical Exam Vitals: Vital Signs Temp Pulse Resp BP Pulse Ox 04/30/23 18:12 97 22 157/115 97 04/30/23 16:49 87 20 167/122 98 04/30/23 13:13 98.1 F 83 18 153/107 99 Intake and Output 04/30/23 04/30/23 05/01/23 14:59 22:59 06:59 Other: Weight 74.843 kg GENERAL EXAM: Anxious/agitated, 37-year-old white male , exhibiting delusions and hallucinations HEAD: Normocephalic and atraumatic EYES: Normal reaction of pupils, equal size. NOSE: Clear with pink turbinates. THROAT: No erythema or exudates. NECK: No masses, no JVD. CHEST: No chest wall deformity. LUNGS: Equal air entry with no crackles, wheeze, rhonchi or dullness. On room air. No conversational dyspnea or accessory muscle use.. CVS: S1 and S2 normal with no audible murmur, regular rhythm. No extra heart sounds. Is currently tachycardic ABDOMEN: No hepatosplenomegaly, active bowel sounds, no guarding or rigidity. SPINE: No scoliosis or deformity SKIN: No rashes CENTRAL NERVOUS SYSTEM: No focal deficits, tone is normal in all 4 extremities. EXTREMITIES: There is no peripheral edema, clubbing, or cyanosis. Peripheral pulses are intact. Results - Laboratory Findings CBC and BMP: 05/01/23 05:18 05/01/23 05:18 Abnormal lab findings: Abnormal Labs 04/30/23 04/30/23 04/30/23 13:48 13:48 13:48 RBC 3.88 L MCV 103.5 H MCH 36.1 H Plt Count 102 L Lymphocytes # 0.7 L Sodium 133 L Total Bilirubin 1.7 H AST 467 H ALT 186 H U Benzodiazepines Scrn Detected H U Marijuana (THC) Screen Detected H Assessment and Plan Assessment: Acute alcohol withdrawal, with delirium tremens. Refractory to multiple Ativan and Haldol administrations, requiring Precedex infusion and ICU admission. The patient received a total of 11 mg of Ativan in the emergency department, 7 mg of Haldol, 50 mg of Benadryl and he was placed in 4. restraints. Subsequently, got transferred to the intensive care unit where is currently on Precedex drip running at a dose of 0.3 mcg/kg/h. His calm and comfortable on room air oxygen. Hemodynamically stable. The tentative the bedside. History of alcohol withdrawal seizures, last reported seizure was on April 29. History of alcoholism Elevated LFTs secondary to above Suspected right high ankle sprain Suspected left globe vitreous hemorrhage, no loss of vision reported. 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 Hypertension Plan: Patient's medications, labs, and imaging were reviewed Patient will be admitted to the intensive care unit on Precedex infusion Continue CIWA protocol Recheck electrolytes in the morning Continue vitamin B1 supplementation Continue Keppra Seizure precautions Patient is reportedly petitioned by police May follow up outpatient with ophthalmology. Orthopedics were consulted for suspected ankle sprain. We will continue to follow patient while in the intensive care unit I have personally seen and examined the patient, performed the documentation and the assessment and plan as written. Number of minutes spent on the visit:20 This patient was seen and evaluated in the joint evaluation with the nurse practitioner. I was aware of this admission. I contacted and talked to the emergency department regarding his admission. The patient will be kept in the intensive care unit and the patient is currently on Precedex drip and is calm an d comfortable and this will be gradually weaned based on his underlying mental status. He does have active symptoms of delirium tremens and he did encounter seizures which is a no code withdrawal seizures for now. CAT scan of the brain showed no acute abnormalities other than a chronic left vitreous hemorrhage as the patient is blind in his left eye. The patient is hemodynamically stable on room air oxygen. The patient as LFT disturbances presented to alcoholic liver disease. His urine drug screen is positive for marijuana and benzodiazepines. CBC is within normal. Chest x-ray has not been done. No reported aspiration. He is on IV fluids with normal saline at rate of 75 mL an hour. He is also on thiamine. He'll be offered Lovenox 40 mg subcu for DVT prophylaxis. Will be also offered IV Protonix. In terms of his seizures, the patient and have an underlying seizure disorder however we suspect this was related to Covid store. Compliance to home Keppra is not clear. I think is reasonable to hold the Keppra for now and evaluate his neurologic function outcome. We will add a Catapres patch if his blood pressure monitoring shows persistent elevation in his blood pressure. Evaluation was done in more than 30 minutes. Time with Patient: Greater than 30
[2023-05-01] MEDS: LORazepam 2 MG/ML INJ IV PRN ×2 (06:10→21:32)
[2023-05-01 06:11] LABS: HGB 15.5 gm/dL (13.0-17.5); MCH 35.5 pg (25.0-35.0); MCHC 33.7 g/dL (31.0-37.0); MCV 105.3 fL (80.0-100.0); Macrocytosis Slight; Mean Platelet Volume 8.3; Platelet Count 102 k/uL (150-450); RBC 4.37 m/uL (4.30-5.90); RDW 12.1 % (11.5-15.5); WBC 6.6 k/uL (3.8-10.6)
[2023-05-01 06:12] LABS: ALT 218 U/L (4-49); AST 430 U/L (17-59); African American GFR (CKD) >90 (>60 ml/min/1.73 sqM); Albumin 4.6 g/dL (3.5-5.0); Alkaline Phosphatase 81 U/L (38-126); Anion Gap 15 mmol/L; Blood Urea Nitrogen 11 mg/dL (9-20); Calcium 9.7 mg/dL (8.4-10.2); Carbon Dioxide 19 mmol/L (22-30); Chloride 106 mmol/L (98-107); Glucose 73 mg/dL (74-99); Non-African American GFR(CKD) >90 (>60 ml/min/1.73 sqM); Potassium 3.7 mmol/L (3.5-5.1); Sodium 140 mmol/L (137-145); Total Bilirubin 1.6 mg/dL (0.2-1.3); Total Protein 7.3 g/dL (6.3-8.2)
[2023-05-01] MEDS: THIAMINE 100 MG TAB PO SCH (08:25)
[2023-05-01] MEDS: SODIUM CHLORIDE 0.9% 1,000 ML IV SCH ×3 (08:26→21:34)
[2023-05-01] MEDS: PANTOPRAZOLE 40 MG/10 ML VIAL IV SCH (08:26)
[2023-05-01] MEDS ORDERED: cloNIDine 0.1 MG/24HR PATCH TRANSDERM SCH (10:00)
--- NOTE | 2023-05-01 10:03 | P.CNOR ---
History of Present Illness - [facility] Consult date: 05/01/23 Consult reason: other (Right ankle sprain) History of present illness: Patient is 37-year-old male with a significant past medical history of chronic alcohol abuse, alcohol withdrawal seizures, nonalcoholic-related seizure disorder who presented to [facility] on 04/30/2023 after being brought in by EMS and police. Much of the history was reviewed from his previous admission on 04/29/2023 emergency room staff notes along with emergency room staff notes from 04/30/2023. Patient apparently was at [place] when he developed withdrawal type symptoms and a possible-related seizure, he was initially brought to the hospital on 04/29/2023 and evaluated in the emergency room at [facility]. After being discharged from [facility] will come attempt was made to go back to [place]. According to the current ER notes from 04/30/2023, he was then taken to [facility] for evaluation, he was asked to leave due to him causing a significant disturbance. Police did identify the patient and the parking lot, he was significantly altered mental status, he was then brought in to [facility] for further evaluation. Patient underwent extensive workup by the emergency room staff to receive multiple medications due to his altered mental status and agitated state. Patient was then admitted to the ICU. I did evaluate the patient in our ICU today at bedside. Our orthopedic team was consulted due to patient complaining at one point of right ankle pain along with x-ray findings of possible high ankle sprain. Patient was very out of it today at bedside, I was unable to obtain any history of present illness will review of systems. Review of Systems Constitutional: Reports as per [facility] Past Medical History Past Medical History: Seizure Disorder History of Any Multi-Drug Resistant Organisms: None Reported Past Surgical History: No Surgical Hx Reported Past Psychological History: No Psychological Hx Reported Smoking Status: Smoker, current status unknown Past Alcohol Use History: Abuse Past Drug Use History: None Reported - Past Family History Father Family Medical History: Unable to Obtain (due to mental status) Medications and Allergies Home Medications Medication Instructions Recorded Confirmed Type levETIRAcetam [Keppra] 750 mg PO BID 04/30/23 04/30/23 History Allergies Allergy/AdvReac Type Severity Reaction Status Date / Time No Known Allergies Allergy Verified 04/30/23 14:47 Physical Examination Right lower extremity: No obvious open lesions present to the extremity. There are multiple small abrasions and scabs to the right lower extremity distal to the knee. There was some ecchymosis noted over the anterior medial aspect of the upper ankle, no significant swelling in those areas. There is no symptoms swelling to the medial and lateral malleolus region. I was unable to reproduce any pain with palpation throughout the knee, lower leg, anterior and posterior ankle, medial and lateral malleolus, forefoot, midfoot, hindfoot with palpation. Compression test of the lower leg reproduce no discomfort throughout the lower extremity that was visualized. Passive range of motion of the knee with flexion and extension along with plantar flexion, dorsiflexion, EHL, FHL, inversion and eversion ankle reproduce no obvious pain signs Dorsalis pedis pulses 2+ Results - Labs Labs: Abnormal Lab Results - Last 24 Hours (Table) 04/30/23 04/30/23 04/30/23 Range/Units 13:48 13:48 13:48 RBC 3.88 L (4.30-5.90) m/uL MCV 103.5 H (80.0-100.0) fL MCH 36.1 H (25.0-35.0) pg Plt Count 102 L (150-450) k/uL Lymphocytes # 0.7 L (1.0-4.8) k/uL Sodium 133 L (137-145) mmol/L Carbon Dioxide (22-30) mmol/L Creatinine (0.66-1.25) mg/dL Glucose (74-99) mg/dL Total Bilirubin 1.7 H (0.2-1.3) mg/dL AST 467 H (17-59) U/L ALT 186 H (4-49) U/L U Benzodiazepines Scrn Detected H (NotDetected) U Marijuana (THC) Screen Detected H (NotDetected) 05/01/23 05/01/23 Range/Units 05:18 05:18 RBC (4.30-5.90) m/uL MCV 105.3 H (80.0-100.0) fL MCH 35.5 H (25.0-35.0) pg Plt Count 102 L (150-450) k/uL Lymphocytes # (1.0-4.8) k/uL Sodium (137-145) mmol/L Carbon Dioxide 19 L (22-30) mmol/L Creatinine 0.59 L (0.66-1.25) mg/dL Glucose 73 L (74-99) mg/dL Total Bilirubin 1.6 H (0.2-1.3) mg/dL AST 430 H (17-59) U/L ALT 218 H (4-49) U/L U Benzodiazepines Scrn (NotDetected) U Marijuana (THC) Screen (NotDetected) H & H 04/30/23 05/01/23 Range/Units 13:48 05:18 Hgb 14.0 15.5 (13.0-17.5) gm/dL Hct 40.1 46.0 (39.0-53.0) % Result Diagrams: 05/01/23 05:18 05/01/23 05:18 - Diagnostic results Ankle/Foot x-ray: report reviewed, image reviewed (X-rays and reports reviewed of the right foot and ankle. No fractures or dislocations throughout the ankle or foot were identified. Report mentions osseous findings along the medial and lateral malleolus from previous injuries. No obvious foreign bodies were noted) Assessment and Plan Assessment: Right ankle ecchymosis Possible history of remote trauma right lower extremity Alcohol abuse Other medical comorbidities Plan: I was able to discuss the case, this including both physical exam findings and imaging studies my attending Dr. Fan. No orthopedic surgical intervention is recommended at this time Due to the patient's current mental status, very difficult to obtain any further history or physical exam. Plan to reexamine the patient has his mentation improves At this time, patient will weight-bear as tolerated to the right lower extremity. Recommending icing and elevating of that extremity. Utilize Tylenol or NSAIDs for pain control DVT prophylaxis per primary medical status We'll continue to follow patient during inpatient stay Time with Patient: Less than 30
[2023-05-01] MEDS: NICOTINE 14MG/24HR PATCH TRANSDERM SCH (11:02)
[2023-05-01] MEDS: ENOXAPARIN 40 MG/0.4 ML SYRINGE SQ SCH (11:02)
--- NOTE | 2023-05-01 11:06 | P.PN ---
Subjective Progress Note Date: 05/01/23 Hospital Course: 37-year-old male with a PMH of EtOH abuse with history of DTs requiring ICU hospitalization and Ativan infusion, history of alcohol withdrawal seizures, and reported history of qzs-whirras-zyvpozu seizure disorder who was brought into the emergency room sent from [place] for DTs. The patient has reportedly been admitted to [facility] since 0 on 04/26 for alcohol rehabilitation and detox. The patient routinely drinks a fifth of hard liquor daily and has been doing so for the past several years. His last drink was just prior to admission at [facility]. In the emergency room, the patient was given Ativan IV push 11 mg, Benadryl 50 mg IV push, Haldol 5 mg IM and [address] head and cervical spine revealed no acute intracranial abnormalities aside from a global abnormality suspicious for vitreous hemorrhage versus other etiologies. A right ankle x-ray revealed lateral and anterior soft tissue swelling along the tibiotalar joint with a joint effusion, consistent with a high ankle sprain. Laboratory evaluation revealed an MCV of 103.5, platelet count 102, sodium 133, total bilirubin 0.7, lactic acid 1.0, AST 467, ALT 186, with urine toxicology positive for marijuana. Patient admitted to medical ICU on Precedex drip. Subjective: Seen and examined at bedside. No acute events overnight. He has been less agitated on Precedex drip. Pertinent positives and negatives as discussed above, a complete review of systems was performed and all other systems are negative. Vitals Signs Reviewed. General: nontoxic, no distress, appears at stated age, sedated Derm: warm, dry Head: atraumatic, normocephalic, symmetric Eyes: EOMI, no lid lag, anicteric sclera, pupil reactive Mouth: no lip lesion, mucus membranes moist Cardiovascular: S1S2 reg, bradycardic, no murmur Lungs: CTA bilateral, no rhonchi, no rales , no accessory muscle use Abdominal: soft, nontender to palpation, no guarding, no appreciable organomegaly Ext: no gross muscle atrophy, no edema, no contractures Neuro: no focal neuro deficits Psych: Sedated Data Reviewed Today: Pertinent Labs: WBC 6.6, hemoglobin 15.5, bicarb 19, creatinine 0.59, total bilirubin 1.6, AST 430, ALT 218 Imaging: No new imaging Assessment and Plan: Patient is critically ill, in medical ICU. Active: Alcohol withdrawal with delirium tremens Right high ankle sprain Macrocytosis Thrombocytopenia Abnormal LFTs Epilepsy -Patient currently in medical ICU, on Precedex drip -Ativan IV as needed based on CIWA scores -Thiamine 100 mg daily -Validation Consultant note reviewed, continue supportive care -PT/INR ordered, to calculate Maddrey score -Thrombocytopenia and abnormal LFTs in the setting of alcohol use -Unsure if patient has true epilepsy or SEIZURES were related to withdrawal, currently off of Keppra -Orthopedics note reviewed, no surgical interventions at the moment Resolved: Hyponatremia Chronic: Congenital left eye blindness DVT ppx: Lovenox Code status: Full code Anticipated discharge place: Pending clinical course Anticipated discharge time: Pending clinical course Objective - Vital Signs Vital signs: Vital Signs Temp 98.7 F 05/01/23 08:00 Pulse 56 L 05/01/23 10:00 Resp 14 05/01/23 10:00 BP 136/97 05/01/23 10:00 Pulse Ox 98 05/01/23 10:00 FiO2 Intake & Output 04/30/23 05/01/23 05/01/23 18:59 06:59 18:59 Intake Total 86.194 458.607 Output Total 900 0 Balance -813.806 458.607 Weight 74.843 kg 70.6 kg Intake: Intake, IV Titration 86.194 158.607 Amount Dexmedetomidine/0.9% NaCl 86.194 8.607 (Pmx) 400 mcg In Empty Bag 1 bag @ 0.2 MCG/KG/HR 3.742 mls/hr IV .Q24H [facility] Rx#:[id number] Sodium Chloride 0.9% 1, 150 000 ml @ 75 mls/hr IV . [id number] [facility] Rx#:[id number] Oral 300 Output: Urine 900 0 Other: Voiding Method External Catheter External Catheter - Labs CBC & Chem 7: 05/01/23 05:18 05/01/23 05:18 Labs: Abnormal Lab Results - Last 24 Hours (Table) 04/30/23 04/30/23 04/30/23 Range/Units 13:48 13:48 13:48 RBC 3.88 L (4.30-5.90) m/uL MCV 103.5 H (80.0-100.0) fL MCH 36.1 H (25.0-35.0) pg Plt Count 102 L (150-450) k/uL Lymphocytes # 0.7 L (1.0-4.8) k/uL Sodium 133 L (137-145) mmol/L Carbon Dioxide (22-30) mmol/L Creatinine (0.66-1.25) mg/dL Glucose (74-99) mg/dL Total Bilirubin 1.7 H (0.2-1.3) mg/dL AST 467 H (17-59) U/L ALT 186 H (4-49) U/L U Benzodiazepines Scrn Detected H (NotDetected) U Marijuana (THC) Screen Detected H (NotDetected) 05/01/23 05/01/23 Range/Units 05:18 05:18 RBC (4.30-5.90) m/uL MCV 105.3 H (80.0-100.0) fL MCH 35.5 H (25.0-35.0) pg Plt Count 102 L (150-450) k/uL Lymphocytes # (1.0-4.8) k/uL Sodium (137-145) mmol/L Carbon Dioxide 19 L (22-30) mmol/L Creatinine 0.59 L (0.66-1.25) mg/dL Glucose 73 L (74-99) mg/dL Total Bilirubin 1.6 H (0.2-1.3) mg/dL AST 430 H (17-59) U/L ALT 218 H (4-49) U/L U Benzodiazepines Scrn (NotDetected) U Marijuana (THC) Screen (NotDetected)
[2023-05-01 11:39] LABS: Prothrombin Time 10.4 sec (9.0-12.0)
[2023-05-02] MEDS: LORazepam 2 MG/ML INJ IV PRN ×2 (03:21→06:54)
[2023-05-02 05:09] LABS: Basophils % (A) 0 %; Eosinophils # (A) 0.2 k/uL (0-0.7); Eosinophils % (A) 3 %; HCT 43.4 % (39.0-53.0); HGB 14.2 gm/dL (13.0-17.5); Lymphocytes # (A) 0.7 k/uL (1.0-4.8); Lymphocytes % (A) 15 %; MCH 33.8 pg (25.0-35.0); MCHC 32.6 g/dL (31.0-37.0); MCV 103.5 fL (80.0-100.0); Macrocytosis Slight; Mean Platelet Volume 8.9; Monocytes # (A) 0.5 k/uL (0-1.0); Monocytes % (A) 10 %; Neutrophils # (A) 3.4 k/uL (1.3-7.7); Neutrophils % (A) 69 %; Platelet Count 125 k/uL (150-450); RDW 12.5 % (11.5-15.5); WBC 4.8 k/uL (3.8-10.6)
[2023-05-02 05:30] LABS: Potassium 4.2 mmol/L (3.5-5.1)
[2023-05-02 05:31] LABS: ALT 168 U/L (4-49); AST 250 U/L (17-59); African American GFR (CKD) >90 (>60 ml/min/1.73 sqM); Albumin 3.8 g/dL (3.5-5.0); Alkaline Phosphatase 95 U/L (38-126); Anion Gap 12 mmol/L; Blood Urea Nitrogen 8 mg/dL (9-20); Calcium 9.1 mg/dL (8.4-10.2); Carbon Dioxide 21 mmol/L (22-30); Chloride 101 mmol/L (98-107); Glucose 118 mg/dL (74-99); Non-African American GFR(CKD) >90 (>60 ml/min/1.73 sqM); Sodium 134 mmol/L (137-145); Total Bilirubin 1.2 mg/dL (0.2-1.3); Total Protein 6.3 g/dL (6.3-8.2)
[2023-05-02] MEDS ORDERED: hydrALAZINE HCL 25 MG TAB PO STA (07:09)
--- NOTE | 2023-05-02 08:52 | P.PN ---
Subjective Progress Note Date: 05/02/23 I am seeing this patient in new consultation today 05/01/2023 in the intensive care unit for acute alcohol withdrawal. Patient is a 37-year-old white male with past medical history significant for alcoholism, alcohol withdrawal seizures, and prior admissions for DTs. Patient reportedly drinks 1/5 of alc ohol per day. He is currently confused and delirious, and most of this HPI was obtained from chart review. The patient was apparently admitted at [facility] to detox from alcohol. The patient did have a seizure while at the facility, and had an ER visit on April 29. The patient was then discharged back to [facility]. Yesterday, afternoon the patient was brought in by the police, after being found in a parking lot causing some sort of disturbance. The patient was found to be agitated and having hallucinations/delusions. It is unknown when his last drink was. Serum EtOH level was less than 10 on arrival. He was started on the CIWA protocol, and admitted to the intensive care unit. The patient was also reporting some right foot pain. X-ray of the right ankle showed prominent anterior and lateral sided soft tissue swelling along with underlying tibiotalar joint effusion. This was consistent with high ankle sprain. There are also chronic ununited fracture fragments below both medial and lateral malleoli related to episodes of prior injury. No acute fracture seen. CT of the brain and C-spine without contrast showed no acute intracranial process or C-spine fracture. It did show a left globe abnormality suspicious for vitreous hemorrhage. The patient is currently sitting up in bed, on room air, quite agitated, exhibiting many delusions and hallucinations. He has been given multiple doses of Ativan and Haldol. He was then started on Precedex infusion which is currently infusing at 0.4 mics per kilogram per minute. Urine toxicology screen was positive for marijuana and benzodiazepines on arrival. CBC on arrival was unremarkable. BMP and electrolytes were unremarkable. Patient does have slightly elevated at LFTs consistent with chronic alcohol abuse. He is receiving vitamin B1 supplementation. Normal saline is infusing at 100 mL per hour. Patient will be monitored in the intensive care unit. On today's evaluation of 05/02/2023, the patient has recovered significantly and he is fully awake and alert and communicating. Minimal amount of tremors. Otherwise, is alert and oriented and is following commands and answering questions appropriately. BP is under better control. Does have some limited sinus tachycardia and a heart rate is running at the rate of 108-110. The most recent C1 scale was 8 and the patient was given a dose of Ativan in the early evening morning hours. He was having increased tremors. Is doing well othe rwise. His tolerating his diet. He was offered breakfast this morning. Is off the Precedex. No agitation. His on normal saline at rate of 75 mL an hour. He has a clonidine patch. Heparin will be restarted. No episodes of any seizures since arrival to the hospital. Objective - Vital Signs Vital signs: Vital Signs Temp 98.4 F 05/02/23 04:00 Pulse 76 05/02/23 07:00 Resp 16 05/02/23 07:00 BP 143/112 05/02/23 07:00 Pulse Ox 97 05/02/23 07:00 FiO2 Intake & Output 05/01/23 05/02/23 05/02/23 18:59 06:59 18:59 Intake Total 1692.063 825 75 Output Total 700 1050 300 Balance 992.063 -225 -225 Weight 70.6 kg 68.2 kg Intake: IV 900 825 75 Sodium Chloride 0.9% 1, 900 825 75 000 ml @ 75 mls/hr IV . [id number] [facility] Rx#:[id number] Intake, IV Titration 44.063 Amount Dexmedetomidine/0.9% NaCl 44.063 (Pmx) 400 mcg In Empty Bag 1 bag @ 0.2 MCG/KG/HR 3.742 mls/hr IV .Q24H [facility] Rx#:[id number] Oral 748 Output: Urine 700 1050 300 Other: Voiding Method Urinal Urinal # Bowel Movements 1 - Exam GENERAL EXAM: 37-year-old white male , patient is currently on room air oxygen., And comfortable. Communicating and having breakfast this morning. He is currently off Precedex. HEAD: Normocephalic and atraumatic EYES: Normal reaction of pupils, equal size. NOSE: Clear with pink turbinates. THROAT: No erythema or exudates. NECK: No masses, no JVD. CHEST: No chest wall deformity. LUNGS: Equal air entry with no crackles, wheeze, rhonchi or dullness. On room air. No conversational dyspnea or accessory muscle use.. CVS: S1 and S2 normal with no audible murmur, regular rhythm. No extra heart sounds. Is currently tachycardic ABDOMEN: No hepatosplenomegaly, active bowel sounds, no guarding or rigidity. SPINE: No scoliosis or deformity SKIN: No rashes CENTRAL NERVOUS SYSTEM: No focal deficits, tone is normal in all 4 extremities. EXTREMITIES: There is no peripheral edema, clubbing, or cyanosis. Peripheral pulses are intact. - Labs CBC & Chem 7: 05/02/23 04:21 05/02/23 04:21 Labs: Abnormal Lab Results - Last 24 Hours (Table) 05/02/23 05/02/23 Range/Units 04:21 04:21 RBC 4.20 L (4.30-5.90) m/uL MCV 103.5 H (80.0-100.0) fL Plt Count 125 L (150-450) k/uL Lymphocytes # 0.7 L (1.0-4.8) k/uL Sodium 134 L (137-145) mmol/L Carbon Dioxide 21 L (22-30) mmol/L BUN 8 L (9-20) mg/dL Creatinine 0.63 L (0.66-1.25) mg/dL Glucose 118 H (74-99) mg/dL AST 250 H (17-59) U/L ALT 168 H (4-49) U/L Assessment and Plan Assessment: Acute alcohol withdrawal, with delirium tremens. Clinically recovered and the patient is currently off Precedex. He is having some limited tremors is sinus tachycardia. He was given Ativan earlier this morning for a CIWA scale of 8. For the most part, recovered. Is awake and alert and is communicating. He is having breakfast this morning. History of alcohol withdrawal seizures, last reported seizure was on April 29. History of alcoholism Elevated LFTs secondary to above Suspected right high ankle sprain Suspected left globe vitreous hemorrhage, no loss of vision reported. 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 Hypertension Plan: Precedex has been discontinued Having some limited tremors is sinus. Mentation is normalized Continue CIWA protocol Recheck electrolytes in the morning Continue vitamin B1 supplementation Continue Keppra and this will be started at the same dose Seizure precautions Continue same management and the patient can be transferred to [facility]. Case management for arrangements for transfer back to [facility] within the next 24-48 hours if things are stable.
[2023-05-02] MEDS: IBUPROFEN 600 MG TAB PO PRN ×2 (09:26→22:12)
[2023-05-02] MEDS: ENOXAPARIN 40 MG/0.4 ML SYRINGE SQ SCH (09:26)
[2023-05-02] MEDS: PANTOPRAZOLE 40 MG/10 ML VIAL IV SCH (09:26)
[2023-05-02] MEDS: NICOTINE 14MG/24HR PATCH TRANSDERM SCH (09:26)
--- NOTE | 2023-05-02 11:29 | P.PN ---
Subjective Progress Note Date: 05/02/23 Hospital Course: 37-year-old male with a PMH of EtOH abuse with history of DTs requiring ICU hospitalization and Ativan infusion, history of alcohol withdrawal seizures, and reported history of rji-jigrecn-cidhcen seizure disorder who was brought into the emergency room sent from [facility] for DTs. The patient has reportedly been admitted to [facility] since 2299 on 04/26 for alcohol rehabilitation and detox. The patient routinely drinks a fifth of hard liquor daily and has been doing so for the past several years. His last drink was just prior to admission at [facility]. In the emergency room, the patient was given Ativan IV push 11 mg, Benadryl 50 mg IV push, Haldol 5 mg IM and [address] head and cervical spine revealed no acute intracranial abnormalities aside from a global abnormality suspicious for vitreous hemorrhage versus other etiologies. A right ankle x-ray revealed lateral and anterior soft tissue swelling along the tibiotalar joint with a joint effusion, consistent with a high ankle sprain. Laboratory evaluation revealed an MCV of 103.5, platelet count 102, sodium 133, total bilirubin 0.7, lactic acid 1.0, AST 467, ALT 186, with urine toxicology positive for marijuana. Patient admitted to medical ICU on Precedex drip. Now off Precedex drip, on IV Ativan as needed. Patient pending discharge to [facility]. Subjective: Seen and examined at bedside. No acute events overnight. Pertinent positives and negatives as discussed above, a complete review of systems was performed and all other systems are negative. Vitals Signs Reviewed. General: nontoxic, no distress, appears at stated age Derm: warm, dry Head: atraumatic, normocephalic, symmetric Eyes: EOMI, no lid lag, anicteric sclera Mouth: no lip lesion, mucus membranes moist Cardiovascular: S1S2 reg, no murmur Lungs: CTA bilateral, no rhonchi, no rales , no accessory muscle use Abdominal: soft, nontender to palpation, no guarding, no appreciable o rganomegaly Ext: no gross muscle atrophy, no edema, no contractures Neuro: CN II-XI grossly intact, no focal neuro deficits Psych: Alert, oriented, appropriate affect Data Reviewed Today: Pertinent Labs: WBC 4.8, hemoglobin 14.2, sodium 134, bicarb 21, creatinine 0.63, AST 250, ALT 168 Imaging: No new imaging Assessment and Plan: Active: Alcohol withdrawal with delirium tremens, resolving Right high ankle sprain Macrocytosis Thrombocytopenia Abnormal LFTs, resolving Epilepsy? Uncontrolled hypertension -Ativan IV as needed based on CIWA scores -Thiamine 100 mg daily -Pilot Control Operator Helper note reviewed, continue supportive care -Thrombocytopenia and abnormal LFTs in the setting of alcohol use -Keppra restarted -Orthopedics following, no surgical interventions at the moment -Patient needs a psychiatric evaluation to go back to [facility], consult ordered -Hypertension possibly also in the setting of withdrawals, on Catapres patch Resolved: Mild Hyponatremia Chronic: Congenital left eye blindness DVT ppx: Lovenox Code status: Full code Anticipated discharge place: [facility] Anticipated discharge time: Likely tomorrow Objective - Vital Signs Vital signs: Vital Signs Temp 98.3 F 05/02/23 08:00 Pulse 62 05/02/23 08:30 Resp 13 05/02/23 08:30 BP 177/130 05/02/23 09:00 Pulse Ox 98 05/02/23 08:30 FiO2 Intake & Output 05/01/23 05/02/23 05/02/23 18:59 06:59 18:59 Intake Total 1692.063 825 150 Output Total 700 1050 300 Balance 992.063 -225 -150 Weight 70.6 kg 68.2 kg Intake: IV 900 825 150 Sodium Chloride 0.9% 1, 900 825 150 000 ml @ 75 mls/hr IV . [id number] [facility] Rx#:[id number] Intake, IV Titration 44.063 Amount Dexmedetomidine/0.9% NaCl 44.063 (Pmx) 400 mcg In Empty Bag 1 bag @ 0.2 MCG/KG/HR 3.742 mls/hr IV .Q24H [facility] Rx#:[id number] Oral 748 Output: Urine 700 1050 300 Other: Voiding Method Urinal Urinal # Voids 1 # Bowel Movements 1 - Labs CBC & Chem 7: 05/02/23 04:21 05/02/23 04:21 Labs: Abnormal Lab Results - Last 24 Hours (Table) 05/02/23 05/02/23 Range/Units 04:21 04:21 RBC 4.20 L (4.30-5.90) m/uL MCV 103.5 H (80.0-100.0) fL Plt Count 125 L (150-450) k/uL Lymphocytes # 0.7 L (1.0-4.8) k/uL Sodium 134 L (137-145) mmol/L Carbon Dioxide 21 L (22-30) mmol/L BUN 8 L (9-20) mg/dL Creatinine 0.63 L (0.66-1.25) mg/dL Glucose 118 H (74-99) mg/dL AST 250 H (17-59) U/L ALT 168 H (4-49) U/L
[2023-05-02 12:15] VITALS: BMI 22.8
--- NOTE | 2023-05-02 13:22 | P.CN ---
Psychiatric Consult - . Consult date: 05/02/23 Consult:: 05/02/23 11:38 IDENTIFYING DATA: This patient is a 37-year-old male, currently living alone in a house, he is unemployed. REASON FOR REFERRAL: Psychiatry was consulted for alcohol use disorder and clearance for [facility] HISTORY OF PRESENT ILLNESS: The patient presented to the hospital initially on 04/30 with police for altered mental status. According to ER report patient [facility] and was asked to leave due to causing a disturbance. Patient was found in the parking lot later on trying to get into vehicles. Patient had was apparently confused and has a history of seizures. Patient was previously at [facility] and left and according to police will not be allowed back. Patient was petitioned by police upon arrival and admitted for alcohol withdrawal and delirium and currently in the ICU. Patient was asked to be seen by junior technical writer today for alcohol use disorder/withdrawal. Patient had a computed tomography scan which did not show any acute changes, patient was also on Precedex which was titrated off, has been receiving Ativan in the ICU and is currently on CIWA protocol. Patients nurse states that patient has improved today and was apparently requiring a psychia tric evaluation to return back to [facility]. Nurse also claims that patient had recently left and the other hospital against medical advice. Patient was seen laying in bed and agreeable to speak to junior technical writer. He appeared to be mildly disheveled in appearance however was awake and alert. He was fairly pleasant during the interaction however initially was somewhat guarded and concrete. He claims that he fractured his ankle at [facility] about 2 days ago. He states that he has trouble remembering what had occurred. He showed junior technical writer his ankle which appear to be fairly bruised. He states that this happened while he was at [facility]. He claims that he has been there about 6 times in the past however was fairly guarded about why he was leaving early during treatment. He claims that he has been drinking heavily since the age of [age] years old. He claims that he is drinking about a fifth of vodka per day. He claims that his last drink was about 10 days ago. States that this has been causing financial problems however is denying any legal issues or DUIs in the past. He states that he also has a history of seizures and also withdrawal seizures when he withdraws from alcohol. He states that he also was having hallucinations while at [facility] mainly visual hallucinations and some auditory. He claims that since coming the hospital he is not had any more hallucinations. Claims that his withdrawal symptoms have improved greatly since coming into the hospital. States that he is not suicidal or homicidal at this time. He claims that he has been dealing with grief since his boyfriend back in January of this year. He states that he has been feeling somewhat depressed, seems that his boyfriend of metastatic melanoma. He claims that he is wanting to go back to [facility] and appeared to be few fairly future oriented. We also did speak about medications and is agreeable to try antidepressants and also medications for cravings of alcohol. Patient was also open to trying trazodone for sleep. At this time patient denies any suicidal or homical ideations, intent or plan. Patient denies any auditory, visual hallucinations and denies any paranoia or delusions. Patients admits to using alcohol as noted above, also smokes cigarettes daily and marijuana daily. PAST PSYCHIATRIC HISTORY: Patient has a a history of polysubstance abuse including alcohol and marijuana. Patient denies being on any psychiatric medications. Patient denies any previous psychiatric hospitalizations. Patient denies any psychiatric outpatient follow-up. Patient denies any history of suicide attempts in the past. He denies any access to guns or weapons. Past Medical History: Seizure Disorder History of Any Multi-Drug Resistant Organisms: None Reported Past Surgical History: No Surgical Hx Reported Past Psychological History: No Psychological Hx Reported Smoking Status: Smoker, current status unknown Past Alcohol Use History: Abuse Past Drug Use History: None Reported ALLERGIES: as per EMR. CHEMICAL DEPENDENCY HISTORY: as per HPI. FAMILY PSYCHIATRIC/SUBSTANCE USE HISTORY: denies SOCIAL HISTORY: Patient was born in [place] in a family and then moved back to the . He claims that he completed high school and did some college. 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 He is denying any legal history. MENTAL STATUS EXAM: General Appearance: Patient appears to be thin, mildly disheveled, stated age is alert, pleasant, and initially concrete and guarded however with time he became more cooperative. Patient appears to have poor hygiene and grooming wearing hospital gown with fair eye contact. Behavior: Patient is calmly lying in bed without any agitated behavior. A ttempts to cooperate Speech: Patient's speech is fluent and nonpressured. Mood/Affect: Patient reports their mood is "a little depressed", affect is congruent and constricted Suicidality/Homicidality: Patient denies having any suicidal or homicidal ideation intent or plan. Perceptions: Patient denies any visual hallucinations and denies any auditory hallucinations Though content/process: There is no evidence of any delusional thought content and thought process is linear and goal-directed. Memory and concentration: AOX3, grossly intact for the purposes of this session. Can spell "WORLD" backwards Judgment and insight: improving IMPRESSIONS: Depressive disorder unspecified Bereavement Alcohol use disorder, severe dependence Cannabis use disorder Nicotine dependence PLAN: -At this time patient DOES NOT meet criteria for inpatient psychiatric admission. -Would recommend the following medication changes/additions: Zoloft 50 mg daily for mood/anxiety, trazodone 50 mg daily at bedtime for insomnia/mood, acamprosate 333 mg 3 times a day with a plan to increase to 666 mg 3 times a day starting tomorrow for alcohol cravings. -CIWA protocol with PRN Ativan for alcohol withdrawal. Continue to monitor vital signs. -precision layout worker to provide patient with outpatient mental health/psychiatry resources for appropriate follow up upon discharge -Cloth Washer Operator spoke with patient about substance abuse and the harmful effects on medical and mental health, patient verbally understood and agreed. -patient states that he is willing and excited to go back to rehab to finish the entire program. SW to assist arranging for this as early as tomorrow. -Communicated plan to patient's nurse -Will continue to follow along tomorrow then likely sign off. -Please contact with any questions. 05/02/23 13:13
--- NOTE | 2023-05-02 14:02 | P.PN ---
Subjective Progress Note Date: 05/02/23 Principal diagnosis: Right foot/ankle pain patient was examined today at bedside in the, he is much more awake today and able to answer appropriately. Patient states he fell a few days prior and has mild pain that involves the anterior part of the ankle and top of the foot. Owen rodriguez has not been out of bed since being admitted to [facility]. Discussed with nursing today at bedside, they are changing around some psychiatric medications with the hope to discharge back to rehab tomorrow. Patient has no other orthopedic complaints. Objective - Vital Signs Vital signs: Vital Signs Temp 98.3 F 05/02/23 08:00 Pulse 62 05/02/23 08:30 Resp 13 05/02/23 08:30 BP 177/130 05/02/23 09:00 Pulse Ox 98 05/02/23 08:30 FiO2 Intake & Output 05/01/23 05/02/23 05/02/23 18:59 06:59 18:59 Intake Total 1692.063 825 150 Output Total 700 1050 300 Balance 992.063 -225 -150 Weight 70.6 kg 68.2 kg 68.2 kg Intake: IV 900 825 150 Sodium Chloride 0.9% 1, 900 825 150 000 ml @ 75 mls/hr IV . [id number] [facility] Rx#:[id number] Intake, IV Titration 44.063 Amount Dexmedetomidine/0.9% NaCl 44.063 (Pmx) 400 mcg In Empty Bag 1 bag @ 0.2 MCG/KG/HR 3.742 mls/hr IV .Q24H [facility] Rx#:[id number] Oral 748 Output: Urine 700 1050 300 Other: Voiding Method Urinal Urinal Toilet # Voids 1 # Bowel Movements 1 - Exam No obvious open lesions present to the extremity. There are multiple small abrasions and scabs to the right lower extremity distal to the knee. There was some ecchymosis noted over the anterior medial aspect of the upper ankle, no significant swelling in those areas. There is no symptoms swelling to the medial and lateral malleolus region. No pain with palpation throughout the knee, lower leg, anterior and posterior ankle, medial and lateral malleolus, forefoot, midfoot, hindfoot with palpation. Compression test of the lower leg reproduce no pain Passive range of motion of the knee with flexion and extension along with plantar flexion, dorsiflexion, EHL, FHL, inversion and eversion ankle reproduce no obvious pain signs Dorsalis pedis pulses 2+ Sensory exam to light touch throughout the extremity is intact - Labs CBC & Chem 7: 05/02/23 04:21 05/02/23 04:21 Labs: Abnormal Lab Results - Last 24 Hours (Table) 05/02/23 05/02/23 Range/Units 04:21 04:21 RBC 4.20 L (4.30-5.90) m/uL MCV 103.5 H (80.0-100.0) fL Plt Count 125 L (150-450) k/uL Lymphocytes # 0.7 L (1.0-4.8) k/uL Sodium 134 L (137-145) mmol/L Carbon Dioxide 21 L (22-30) mmol/L BUN 8 L (9-20) mg/dL Creatinine 0.63 L (0.66-1.25) mg/dL Glucose 118 H (74-99) mg/dL AST 250 H (17-59) U/L ALT 168 H (4-49) U/L Assessment and Plan Assessment: Right foot/ankle pain Right ankle ecchymosis Right foot/ankle contusion Possible history of remote trauma right lower extremity Alcohol abuse Other medical comorbidities Plan: Recommending continuation of conservative measures, this including icing and elevating along with use of Tylenol and NSAIDs as needed. Weight-bear as tolerated DVT prophylaxis per primary medical status On an orthopedic standpoint patient is stable for discharge, follow-up on an as- needed basis Time with Patient: Less than 30
[2023-05-02] MEDS: SERTRALINE 50 MG TAB PO SCH (14:28)
[2023-05-02] MEDS: ACAMPROSATE CALCIUM 333 MG TABLET.DR PO SCH ×3 (14:28→22:12)
[2023-05-02] MEDS ORDERED: traZODone HCL 50 MG TAB PO SCH (21:00)
[2023-05-03] MEDS: ENOXAPARIN 40 MG/0.4 ML SYRINGE SQ SCH (08:30)
[2023-05-03] MEDS: SERTRALINE 50 MG TAB PO SCH (08:30)
[2023-05-03] MEDS: NICOTINE 14MG/24HR PATCH TRANSDERM SCH (08:30)
[2023-05-03] MEDS: PANTOPRAZOLE 40 MG/10 ML VIAL IV SCH (08:30)
[2023-05-03] MEDS: THIAMINE 100 MG TAB PO SCH (08:31)
[2023-05-03] MEDS ORDERED: ACAMPROSATE CALCIUM 333 MG TABLET.DR PO SCH (09:00)
[2023-05-03 09:39] VITALS: BP 149/95; PULSE 68; RESP 17; TEMP 97.7
--- NOTE | 2023-05-03 13:54 | P.PN ---
Progress Note - Text Progress Note Date: 05/03/23 Interval History: Patient was seen daily for psychiatric follow-up on the medical floors for dep ression and bereavement and also alcohol use disorder and withdrawal. patient claims that he is doing a bit better today in terms of her anxiety and also his depression. he states that he still had difficulty sleeping last night. we spoke about increasing his trazodone which he was ok with. claims that he will be staying with his mother at her home in [place] until he can get into rehab on saturday. states that his appetite is fair. appears to be more future oriented today. At this time patient denies any suicidal or homical ideations, intent or plan. Patient denies any auditory, visual hallucinations and denies any paranoia or delusions. Patient denies any side effects from the medications and has been compliant with meds. Mental Status Exam: General Appearance: Patient appears to be thin, mildly disheveled, stated age is alert, pleasant, more cooperative. Patient appears to have improving hygiene and grooming wearing hospital gown with fair eye contact. Behavior: Patient is calmly lying in bed without any agitated behavior. Attempts to cooperate Speech: Patient's speech is fluent and nonpressured. Mood/Affect: Patient reports their mood is "better", affect is congruent Suicidality/Homicidality: Patient denies having any suicidal or homicidal ideation intent or plan. Perceptions: Patient denies any visual hallucinations and denies any auditory hallucinations Though content/process: There is no evidence of any delusional thought content and thought process is linear and goal-directed. more future oriented Memory and concentration: AOX3, grossly intact for the purposes of this session Judgment and insight: improving IMPRESSIONS: Depressive disorder unspecified Bereavement Alcohol use disorder, severe dependence Cannabis use disorder Nicotine dependence PLAN: -At this time patient DOES NOT meet criteria for inpatient psychiatric admission. -Would recommend the following medication changes/additions: Zoloft 50 mg daily for mood/anxiety, increase trazodone 100 mg daily at bedtime for insomnia/mood, acamprosate 666 mg 3 times a day for alcohol cravings. -CIWA protocol with PRN Ativan for alcohol withdrawal. Continue to monitor vital signs. -harness worker to provide patient with outpatient mental health/psychiatry resources for appropriate follow up upon discharge -Leisure Studies Professor spoke with patient about substance abuse and the harmful effects on medical and mental health, patient verbally understood and agreed. -patient will wait at his mothers place this weekend until he is able to go back to rehab on saturday. -Communicated plan to patient's nurse -psychiatry will sign off today -Please contact with any questions.
--- NOTE | 2023-05-03 14:40 | P.DS ---
Providers Date of admission: 04/30/23 20:10 Expected date of discharge: 05/03/23 Attending physician: Blair Pat MD Consults: 04/30/23 20:10 Consult Physician Routine Consulting Provider: Marni Julian Consult Reason/Comments: acute delirium Do you want consulting provider notified?: Already Contacted 04/30/23 20:33 Consult Physician Urgent Consulting Provider: Rangel Fan Consult Reason/Comments: R high ankle sprain Do you want consulting provider notified?: Yes 05/02/23 11:24 Consult Physician Routine Consulting Provider: Wyatt Silverio Consult Reason/Comments: psych eval for Etoh use disorder, need it for [facility] Do you want consulting provider notified?: Yes Primary care physician: Stated None Hospital Course: Discharge Diagnosis: Alcohol withdrawal with delirium tremens Right high ankle sprain Macrocytosis Thrombocytopenia Abnormal LFTs Epilepsy Uncontrolled hypertension Hospital Course: 37-year-old male with a PMH of EtOH abuse with history of DTs requiring ICU hospitalization and Ativan infusion, history of alcohol withdrawal seizures, and reported history of [id number] seizure disorder who was brought into the emergency room sent from [facility] for DTs. The patient has reportedly been admitted to [facility] since 2299 on 04/26 for alcohol rehabilitation and detox. The patient routinely drinks a fifth of hard liquor daily and has been doing so for the past several years. His last drink was just prior to admission at [facility]. In the emergency room, the patient was given Ativan IV push 11 mg, Benadryl 50 mg IV push, Haldol 5 mg IM and [address] head and cervical spine revealed no acute intracranial abnormalities aside from a global abnormality suspicious for vitreous hemorrhage versus other etiologies. A right ankle x-ray revealed lateral and anterior soft tissue swelling along the tibiotalar joint with a joint effusion, consistent with a high ankle sprain. Laboratory evaluation revealed an MCV of 103.5, platelet count 102, sodium 133, total bilirubin 0.7, lactic acid 1.0, AST 467, ALT 186, with urine toxicology positive for marijuana. Patient admitted to medical ICU on Precedex drip. Agitation controlled on Precedex drip. Now requiring less Ativan. Psychiatry was consulted, started on antidepressants. Orthopedic also consulted, discharged on NSAIDs, no acute interventions. He also had severe hypertension, likely in the setting of withdrawal from alcohol as well as ankle pain. Not being discharged on any antihypertensives. Once acute illness resolves, can co nsider outpatient follow-up for hypertension. Patient to go back to [facility] for further rehab. Patient seen and examined at bedside. Vital signs reviewed and stable. General: nontoxic, no distress, appears at stated age Derm: warm, dry Head: atraumatic, normocephalic, symmetric Eyes: EOMI, no lid lag, anicteric sclera Mouth: no lip lesion, mucus membranes moist Cardiovascular: S1S2 reg, no murmur Lungs: CTA bilateral, no rhonchi, no rales , no accessory muscle use Abdominal: soft, nontender to palpation, no guarding, no appreciable organomegaly Ext: no gross muscle atrophy, no edema, no contractures Neuro: CN II-XI grossly intact, no focal neuro deficits Psych: Alert, oriented, appropriate affect A total of 33 minutes of time were spent preparing this complex discharge sum wesly. Patient was discharged on 05/03/23 at 10:28. Patient Condition at Discharge: Stable Plan - Discharge Summary Discharge Rx Participant: Yes New Discharge Prescriptions: New Acamprosate Calcium [Campral] 666 mg PO TID #60 tab traZODone HCL [Desyrel] 50 mg PO HS #30 tab Ibuprofen [Motrin] 600 mg PO TID PRN #30 tab PRN Reason: Pain Pantoprazole [Protonix] 40 mg PO DAILY #60 tab Thiamine [Vitamin B-1] 100 mg PO DAILY #60 tab Sertraline [Zoloft] 50 mg PO DAILY #30 tab Continue levETIRAcetam [Keppra] 750 mg PO BID Discharge Medication List levETIRAcetam [Keppra] 750 mg PO BID 04/30/23 [History] Acamprosate Calcium [Campral] 666 mg PO TID #60 tab 05/03/23 [Rx] Ibuprofen [Motrin] 600 mg PO TID PRN #30 tab 05/03/23 [Rx] Pantoprazole [Protonix] 40 mg PO DAILY #60 tab 05/03/23 [Rx] Sertraline [Zoloft] 50 mg PO DAILY #30 tab 05/03/23 [Rx] Thiamine [Vitamin B-1] 100 mg PO DAILY #60 tab 06/23/23 [Rx] traZODone HCL [Desyrel] 50 mg PO HS #30 tab 05/03/23 [Rx] Follow up Appointment(s)/Referral(s): None,Stated [Primary Care Provider] - 1-2 days Rangel Fan DO [Doctor of Osteopathic Medicine] - As Needed Patient Instructions/Handouts: Abuse of Alcohol (DC), Chronic Hypertension (DC), Alcohol Withdrawal (DC) Activity/Diet/Wound Care/Special Instructions: Please see your PCP. Discharge Disposition: OTHER INSTITUTION NOT DEFINED
--- NOTE | 2023-05-03 15:27 | P.PN ---
Subjective Progress Note Date: 05/03/23 I am seeing this patient in new consultation today 05/01/2023 in the intensive care unit for acute alcohol withdrawal. Patient is a 37-year-old white male with past medical history significant for alcoholism, alcohol withdrawal seizures, and prior admissions for DTs. Patient reportedly drinks 1/5 of alc ohol per day. He is currently confused and delirious, and most of this HPI was obtained from chart review. The patient was apparently admitted at [facility] rehab facility to detox from alcohol. The patient did have a seizure while at the facility, and had an ER visit on April 29. The patient was then discharged back to [facility]. Yesterday, afternoon the patient was brought in by the police, after being found in a parking lot causing some sort of disturbance. The patient was found to be agitated and having hallucinations/delusions. It is unknown when his last drink was. Serum EtOH level was less than 10 on arrival. He was started on the CIWA protocol, and admitted to the intensive care unit. The patient was also reporting some right foot pain. X-ray of the right ankle showed prominent anterior and lateral sided soft tissue swelling along with underlying tibiotalar joint effusion. This was consistent with high ankle sprain. There are also chronic ununited fracture fragments below both medial and lateral malleoli related to episodes of prior injury. No acute fracture seen. CT of the brain and C-spine without contrast showed no acute intracranial process or C-spine fracture. It did show a left globe abnormality suspicious for vitreous hemorrhage. The patient is currently sitting up in bed, on room air, quite agitated, exhibiting many delusions and hallucinations. He has been given multiple doses of Ativan and Haldol. He was then started on Precedex infusion which is currently infusing at 0.4 mics per kilogram per minute. Urine toxicology screen was positive for marijuana and benzodiazepines on arrival. CBC on arrival was unremarkable. BMP and electrolytes were unremarkable. Patient does have slightly elevated at LFTs consistent with chronic alcohol abuse. He is receiving vitamin B1 supplementation. Normal saline is infusing at 100 mL per hour. Patient will be monitored in the intensive care unit. On today's evaluation of 05/02/2023, the patient has recovered significantly and he is fully awake and alert and communicating. Minimal amount of tremors. Otherwise, is alert and oriented and is following commands and answering questions appropriately. BP is under better control. Does have some limited sinus tachycardia and a heart rate is running at the rate of 108-110. The most recent C1 scale was 8 and the patient was given a dose of Ativan in the early evening morning hours. He was having increased tremors. Is doing well othe rwise. His tolerating his diet. He was offered breakfast this morning. Is off the Precedex. No agitation. His on normal saline at rate of 75 mL an hour. He has a clonidine patch. Heparin will be restarted. No episodes of any seizures since arrival to the hospital. On today's evaluation of 04/30/2023, the patient has no specific complaints and the patient is stable, calm and comfortable, no hallucinations, no altered mentation, no tremors. Patient has recovered from his delirium tremens. No seizure activity. No new labs are available from today. Objective - Vital Signs Vital signs: Vital Signs Temp 97.7 F 05/03/23 08:14 Pulse 68 05/03/23 09:20 Resp 17 05/03/23 08:14 BP 149/95 05/03/23 08:14 Pulse Ox 96 05/03/23 08:14 FiO2 Intake & Output 05/02/23 05/03/23 05/03/23 18:59 06:59 18:59 Intake Total 150 Output Total 300 Balance -150 Weight 68.2 kg Intake: IV 150 Sodium Chloride 0.9% 1, 150 000 ml @ 75 mls/hr IV . [id number] [facility] Rx#:[id number] Output: Urine 300 Other: Voiding Method Toilet Toilet Toilet # Voids 0 1 - Exam GENERAL EXAM: 37-year-old white male , patient is currently on room air oxygen., And comfortable. Communicating and having breakfast this morning. He is currently off Precedex. HEAD: Normocephalic and atraumatic EYES: Normal reaction of pupils, equal size. NOSE: Clear with pink turbinates. THROAT: No erythema or exudates. NECK: No masses, no JVD. CHEST: No chest wall deformity. LUNGS: Equal air entry with no crackles, wheeze, rhonchi or dullness. On room air. No conversational dyspnea or accessory muscle use.. CVS: S1 and S2 normal with no audible murmur, regular rhythm. No extra heart sounds. Is currently tachycardic ABDOMEN: No hepatosplenomegaly, active bowel sounds, no guarding or rigidity. SPINE: No scoliosis or deformity SKIN: No rashes CENTRAL NERVOUS SYSTEM: No focal deficits, tone is normal in all 4 extremities. EXTREMITIES: There is no peripheral edema, clubbing, or cyanosis. Peripheral pulses are intact. - Labs CBC & Chem 7: 05/02/23 04:21 05/02/23 04:21 Labs: Abnormal Lab Results - Last 24 Hours (Table) 05/01/23 Range/Units 05:18 Vitamin B12 978.0 H (200.0-944.0) pg/mL Assessment and Plan Assessment: Acute alcohol withdrawal, with delirium tremens. Clinically recovered , The patient is recovered from alcohol withdrawal medium tremens. History of alcohol withdrawal seizures, last reported seizure was on April 29. History of alcoholism Elevated LFTs secondary to above Suspected right high ankle sprain Suspected left globe vitreous hemorrhage, no loss of vision reported. 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 Hypertension Plan: Recover from DTs Continue Keppra Seizure precautions We will sign off the case and I will leave the rest of the management to medicine, likely being discharged to [facility]
[2023-05-03] MEDS ORDERED: traZODone HCL 100 MG TAB PO SCH (21:00)
== END 2023-05-03 17:17 | disposition still patient (30) | DRG 775 ==
LOC: EC 13:04 → 2SICU 20:10 → 4SSUR 05-02 15:47
PROVIDERS: ADMIT Internal Medicine; ATTEND Internal Medicine
PROC: HZ2ZZZZ Detoxification Services for Substance Abuse Treatment (ICD-10-PCS; principal; 2023-04-30)
DX: F10.231 Alcohol dependence with withdrawal delirium (principal); D69.6 Thrombocytopenia, unspecified; D75.89 Other specified diseases of blood and blood-forming organs; E87.1 Hypo-osmolality and hyponatremia; F12.10 Cannabis abuse, uncomplicated; F17.200 Nicotine dependence, unspecified, uncomplicated; F32.A Depression, unspecified; F41.9 Anxiety disorder, unspecified; H43.10 Vitreous hemorrhage, unspecified eye; H54.62 Unqualified visual loss, left eye, normal vision right eye; I10 Essential (primary) hypertension; G40.509 Epileptic seizures related to external causes, not intractable, without status epilepticus; S90.00XA Contusion of unspecified ankle, initial encounter; S93.401A Sprain of unspecified ligament of right ankle, initial encounter; Z78.1 Physical restraint status; Z79.899 Other long term (current) drug therapy
CPT/HCPCS: 36415; 70450; 72125; 80053; 80143; 80179; 80306; 80320; 82075; 82607; 82747; 83605; 83735; 85025; 85027; 85610; 96361; 96372; 96374; 96375; 96376; 99285